=== PATIENT | female | born 1995 | race African-American/Black ===

== ENCOUNTER 2021-09-05 17:38 | Day surgery (SDC) | payer OTHER ==
[2021-09-05] MEDS ORDERED: hydrALAZINE 20 MG/ML VIAL SLOW IVP PRN (19:11)
[2021-09-05] MEDS ORDERED: Lactated Ringer's 1,000 ML IV SCH (19:15)
== END 2021-09-05 21:25 | disposition home or self-care (01) ==
LOC: CSHLD/OP 17:38
PROVIDERS: ATTEND Obstetrics & Gynecology
DX: O47.03 False labor before 37 completed weeks of gestation, third trimester (principal); O34.211 Maternal care for low transverse scar from previous cesarean delivery; O99.283 Endocrine, nutritional and metabolic diseases complicating pregnancy, third trimester; O99.343 Other mental disorders complicating pregnancy, third trimester; N85.8 Other specified noninflammatory disorders of uterus; E03.9 Hypothyroidism, unspecified; F32.A Depression, unspecified; Z3A.36 36 weeks gestation of pregnancy; Z79.899 Other long term (current) drug therapy; Z88.0 Allergy status to penicillin
CPT/HCPCS: 96360; 96361; 99282

== ENCOUNTER 2021-09-09 01:51 | Day surgery (SDC) | payer OTHER ==
[2021-09-09 02:20] VITALS: BMI 34.4
[2021-09-09] MEDS ORDERED: hydrALAZINE 20 MG/ML VIAL SLOW IVP PRN (02:55)
[2021-09-09] MEDS ORDERED: Lactated Ringer's 1,000 ML IV SCH (03:00)
[2021-09-09] MEDS ORDERED: Ondansetron ODT 4 MG TAB SL SCH (03:00)
[2021-09-09 03:59] LABS: SARS-CoV-2 NAA Rapid Test DETECTED (NotDetected)
== END 2021-09-09 04:30 | disposition home or self-care (01) ==
LOC: CSHLD/OP 01:51
PROVIDERS: ATTEND Family Medicine
DX: O98.513 Other viral diseases complicating pregnancy, third trimester (principal); U07.1 COVID-19; O47.03 False labor before 37 completed weeks of gestation, third trimester; O99.283 Endocrine, nutritional and metabolic diseases complicating pregnancy, third trimester; E03.9 Hypothyroidism, unspecified; Z3A.36 36 weeks gestation of pregnancy; Z79.899 Other long term (current) drug therapy; Z88.0 Allergy status to penicillin
CPT/HCPCS: 0240U; 96360; 96361; 99283; Q0162

== ENCOUNTER 2021-09-10 17:33 | Day surgery (SDC) | payer OTHER ==
[2021-09-10] MEDS ORDERED: Acetaminophen/Codeine 30-300mg Tablet PO PRN (19:31)
[2021-09-10] MEDS ORDERED: hydrALAZINE 20 MG/ML VIAL SLOW IVP PRN (19:32)
[2021-09-10 19:40] VITALS: BMI 34.4
[2021-09-10] MEDS ORDERED: Lidocaine Viscous Sol 2% 15 ml UD Cup SSW SCH (21:30)
[2021-09-10 22:21] LABS: Bilirubin Neg (Negative); Blood, Urine 10 (Negative); Clarity Clear (Clear); Glucose, Urine (Dipstick) Normal (Negative); Ketone, Urine 150 mg/dL (Negative); Leukocyte Negative (Negative); Nitrite Negative (Negative); Protein, Urine (Dipstick) 30 mg/dl (Neg-Trace); Specific Gravity, Urine 1.015 (1.002-1.036)
[2021-09-10 22:30] LABS: RBC/HPF 0-3 HPF (0-3); Squamous Epithelial 0-3 HPF (0-3); WBC/HPF 0-3 HPF (0-3)
[2021-09-10 22:31] LABS: Bacteria/HPF 1+ HPF (None Seen); Mucous/LPF 1+ LPF (<2+)
== END 2021-09-10 23:45 | disposition home or self-care (01) ==
LOC: CSHLD/OP 17:33 → CSHERS 17:33 → EDSTATUS 17:46 → CSHLD/OP 23:45
PROVIDERS: ATTEND Family Medicine
DX: O98.513 Other viral diseases complicating pregnancy, third trimester (principal); O36.8130 Decreased fetal movements, third trimester, not applicable or unspecified; O99.283 Endocrine, nutritional and metabolic diseases complicating pregnancy, third trimester; O99.343 Other mental disorders complicating pregnancy, third trimester; O34.219 Maternal care for unspecified type scar from previous cesarean delivery; U07.1 COVID-19; E03.9 Hypothyroidism, unspecified; F32.A Depression, unspecified; N85.8 Other specified noninflammatory disorders of uterus; Z3A.36 36 weeks gestation of pregnancy; Z79.899 Other long term (current) drug therapy; Z88.0 Allergy status to penicillin
CPT/HCPCS: 36415; 81001; 87086; 99283

== ENCOUNTER 2021-09-25 11:17 | Inpatient (IN) | payer MEDICAID, OTHER ==
[2021-09-25] MEDS ORDERED: Ondansetron PF 4 MG/2 ML Vial IVP PRN ×3 (11:24→17:22)
[2021-09-25] MEDS ORDERED: hydrALAZINE 20 MG/ML VIAL SLOW IVP PRN ×2 (11:24→17:22)
[2021-09-25] MEDS ORDERED: Bicitra 30 ML UDCUP PO PRN (11:24)
[2021-09-25] MEDS ORDERED: Clindamycin/D5W 900 MG in Premix Bag 1 BAG IVPB SCH (11:24)
[2021-09-25] MEDS ORDERED: Lactated Ringer's 1,000 ML IV SCH (11:24)
[2021-09-25] MEDS ORDERED: Promethazine HCl 25 MG/ML VIAL IM PRN ×3 (11:24→17:22)
[2021-09-25] MEDS ORDERED: Famotidine/PF 20 mg/2ml Vial SLOW IVP PRN (11:24)
[2021-09-25] MEDS ORDERED: Phenylephrine 40 MG/NS 250 ML 250 ML ONE (12:19)
[2021-09-25] MEDS ORDERED: Morphine PF 10 MG/10 ML VIAL ONE (12:19)
[2021-09-25] MEDS ORDERED: Oxytocin 10 UNITS/ML VIAL ONE ×2 (12:19→14:15)
[2021-09-25] MEDS ORDERED: PHENYLEPHRINE-NS 100 MCG/ML 10 ML SYRINGE ONE (12:19)
[2021-09-25 12:21] LABS: Hemoglobin 10.7 g/dL (12.0-15.5); Mean Corpuscular HGB CONC 32.2 g/dL (32.0-36.0); Mean Corpuscular Volume 80.6 fl (81.6-98.3); Mean Platelet Volume 10.2 fl (7.4-10.4); Platelet Count 318 10x3/uL (150-450); RBC Distribution Width 17.2 % (11.5-14.5); Red Blood Cell (RBC) Count 4.12 10x6/uL (3.90-5.03); White Blood Cell (WBC) Count 7.1 10x3/uL (3.5-10.5)
[2021-09-25 13:30] LABS: Syphilis Antibody Nonreactive (Nonreactive); Syphilis Antibody Index 0.04 S/CO (<1.00 Non-Reactive)
[2021-09-25 13:32] LABS: Hep B Surf Ag Non-Reactive S/CO (NonReactive)
[2021-09-25] MEDS ORDERED: Glycopyrrolate 0.2 MG/ML 5 ML SYRINGE ONE (13:35)
[2021-09-25] MEDS ORDERED: ePHEDrine Sulfate 50 MG/10 ML VIAL ONE (13:36)
[2021-09-25] MEDS ORDERED: Ketorolac Tromethamine 30 MG/ML VIAL ONE (14:07)
[2021-09-25] MEDS ORDERED: Gentamicin Sulfate 80 MG in Premix Bag 1 BAG IVPB SCH (14:30)
[2021-09-25] MEDS ORDERED: HYDROmorphone 2 MG/ML VIAL SLOW IVP PRN (14:50)
[2021-09-25] MEDS ORDERED: Naloxone HCl 0.4 mg/ml Vial IV PRN (14:50)
[2021-09-25] MEDS ORDERED: Promethazine HCl 25 MG SUPP PR PRN (14:50)
[2021-09-25] MEDS ORDERED: Naloxone HCl 0.4 mg/ml Vial IVP PRN ×2 (14:50)
[2021-09-25] MEDS ORDERED: Ketorolac Tromethamine 30 MG/ML VIAL IVP PRN (14:50)
[2021-09-25] MEDS ORDERED: Fentanyl 100 MCG/2 ML VIAL SLOW IVP PRN (14:50)
[2021-09-25] MEDS ORDERED: Ondansetron HCl/PF 4 MG/2 ML Vial IVP PRN (14:50)
[2021-09-25] MEDS ORDERED: diphenhydrAMINE 50 MG/ML VIAL IVP PRN (14:50)
[2021-09-25] MEDS ORDERED: Meperidine HCl/PF 25 MG/ML VIAL SLOW IVP PRN (14:50)
[2021-09-25] MEDS ORDERED: Hydrocerin (Eucerin) Cream 120 gm Jar TOP PRN (14:50)
[2021-09-25] MEDS ORDERED: Communication Order-Pharmacy FS SCH (15:00)
[2021-09-25] MEDS ORDERED: Ketorolac Tromethamine 30 MG/ML VIAL IVP SCH ×2 (15:00→18:00)
[2021-09-25] MEDS ORDERED: diphenhydrAMINE 25 MG CAP PO PRN (17:22)
[2021-09-25] MEDS ORDERED: Bisacodyl 10 MG SUPP PR PRN (17:22)
[2021-09-25] MEDS ORDERED: Boostrix 0.5 ML (Tdap) VIAL IM ONE (17:22)
[2021-09-25] MEDS: Ketorolac Tromethamine 30 MG/ML VIAL IVP SCH (20:13)
[2021-09-25] MEDS: Docusate Calcium (SURFAK) 240 MG CAP PO SCH (20:43)
[2021-09-25] MEDS: Ferrous Sulfate 325 MG TAB PO SCH (20:43)
[2021-09-26] MEDS ORDERED: HYDROcodone/Acetaminophen 5/325 mg Tablet PO PRN (03:00)
[2021-09-26] MEDS ORDERED: Meperidine HCl/PF 25 MG/ML VIAL IM PRN (03:00)
[2021-09-26] MEDS: Ketorolac Tromethamine 30 MG/ML VIAL IVP SCH ×3 (04:42→16:37)
[2021-09-26 06:07] LABS: Hemoglobin 9.7 g/dL (12.0-15.5); Mean Corpuscular HGB CONC 32.9 g/dL (32.0-36.0); Mean Corpuscular Hemoglobin 26.6 pg (27.0-33.0); Mean Corpuscular Volume 80.8 fl (81.6-98.3); Mean Platelet Volume 10.6 fl (7.4-10.4); Platelet Count 270 10x3/uL (150-450); RBC Distribution Width 17.2 % (11.5-14.5); Red Blood Cell (RBC) Count 3.65 10x6/uL (3.90-5.03); White Blood Cell (WBC) Count 12.9 10x3/uL (3.5-10.5)
[2021-09-26] MEDS: Prenatal Vitamin 1 TAB PO SCH (08:29)
[2021-09-26] MEDS: Docusate Calcium (SURFAK) 240 MG CAP PO SCH ×2 (08:29→22:04)
[2021-09-26] MEDS: Simethicone Chewable 80 MG TAB PO PRN ×2 (08:29→19:50)
[2021-09-26] MEDS: HYDROcodone/Acetaminophen 5/325 mg Tablet PO PRN ×3 (08:30→19:51)
[2021-09-26] MEDS: Ferrous Sulfate 325 MG TAB PO SCH ×2 (08:32→22:04)
[2021-09-26] MEDS: Ibuprofen 800 MG TAB PO SCH (22:03)
[2021-09-27] MEDS: Simethicone Chewable 80 MG TAB PO PRN (03:58)
[2021-09-27] MEDS: Ibuprofen 800 MG TAB PO SCH (05:02)
[2021-09-27 08:02] VITALS: BP 114/70; TEMP 98.6
[2021-09-27] MEDS: Prenatal Vitamin 1 TAB PO SCH (09:49)
[2021-09-27] MEDS: Docusate Calcium (SURFAK) 240 MG CAP PO SCH (09:49)
[2021-09-27] MEDS: Ferrous Sulfate 325 MG TAB PO SCH (09:51)
[2021-09-27] MEDS: HYDROcodone/Acetaminophen 5/325 mg Tablet PO PRN (09:56)
== END 2021-09-27 12:02 | disposition home or self-care (01) | DRG 788 ==
LOC: CSHLD 11:17 → CSHPP 17:12
PROVIDERS: ADMIT Family Medicine; ATTEND Family Medicine
PROC: 10D00Z1 Extraction of Products of Conception, Low, Open Approach (ICD-10-PCS; principal; 2021-09-25)
DX: O34.211 Maternal care for low transverse scar from previous cesarean delivery (principal); O34.13 Maternal care for benign tumor of corpus uteri, third trimester; D25.9 Leiomyoma of uterus, unspecified; Z88.0 Allergy status to penicillin; Z3A.39 39 weeks gestation of pregnancy; Z37.0 Single live birth
CPT/HCPCS: 36415; 51702; 85027; 86780; 86850; 86900; 86901; 87340; J1580; J1885; J2274; J2405; J2590; S0028

== ENCOUNTER 2021-09-29 18:32 | Emergency (ER) | payer OTHER ==
[2021-09-29 19:49] LABS: #Eosinphils 0.2 10x3/uL (0.0-0.5); #Monocytes 0.6 10x3/uL (0.0-1.1); #Neutrophils 6.8 10x3/uL (1.5-8.4); %Basophils 0.2 % (0.0-2.0); %Eosinophils 1.7 % (0.0-6.0); %Lymphocytes 20.4 % (18.0-47.0); %Monocytes 6.6 % (0.0-10.0); %Neutrophils 70.2 % (40.0-75.0); Mean Corpuscular HGB CONC 32.1 g/dL (32.0-36.0); Mean Corpuscular Hemoglobin 26.7 pg (27.0-33.0); Mean Corpuscular Volume 83.1 fl (81.6-98.3); Mean Platelet Volume 10.5 fl (7.4-10.4); Platelet Count 208 10x3/uL (150-450); RBC Distribution Width 17.8 % (11.5-14.5); Red Blood Cell (RBC) Count 3.37 10x6/uL (3.90-5.03); White Blood Cell (WBC) Count 9.6 10x3/uL (3.5-10.5)
[2021-09-29 20:05] LABS: ALT (SGPT) 45 U/L (8-55); AST (SGOT) 42 U/L (5-34); Albumin 2.7 g/dL (3.5-5.0); Alkaline Phosphatase 134 U/L (40-110); Anion Gap 13 mmol/L (10-20); BUN (Urea Nitrogen) 8 mg/dL (7.0-18.7); Bilirubin, Total 0.5 mg/dL (0.2-1.2); Calc. Creatinine Clearance 0 mL/min (70-130); Carbon Dioxide 22 mmol/L (22-29); Chloride 109 mmol/L (98-107); Globulin 3.1 g/dL (2.4-3.5); Glucose 94 mg/dL (70-105); Potassium 3.6 mmol/L (3.5-5.1); Protein, Total 5.8 g/dL (6.0-8.3); Sodium 140 mmol/L (136-145)
[2021-09-29] MEDS ORDERED: Ventolin HFA Inhaler 60 PUFF INHALER ONE (20:17)
== END 2021-09-29 21:35 | disposition home or self-care (01) ==
LOC: CSHERS 18:32
DX: R06.00 Dyspnea, unspecified (principal); K59.00 Constipation, unspecified; E03.9 Hypothyroidism, unspecified
CPT/HCPCS: 36415; 71275; 80053; 83880; 85025; 93005

== ENCOUNTER 2023-02-04 06:15 | Emergency (ER) | payer OTHER ==
[2023-02-04] MEDS ORDERED: Ketorolac Tromethamine 30 MG/ML VIAL ONE (07:25)
[2023-02-04] MEDS ORDERED: Ondansetron PF 4 MG/2 ML Vial ONE (07:26)
[2023-02-04 07:36] LABS: #Eosinphils 0.2 10x3/uL (0.0-0.5); #Monocytes 0.5 10x3/uL (0.0-1.1); #Neutrophils 7.4 10x3/uL (1.5-8.4); %Eosinophils 2.1 % (0.0-6.0); %Lymphocytes 11.2 % (18.0-47.0); %Monocytes 5.9 % (0.0-10.0); %Neutrophils 80.5 % (40.0-75.0); Hemoglobin 12.2 g/dL (12.0-15.5); Mean Corpuscular Hemoglobin 24.3 pg (27.0-33.0); Mean Corpuscular Volume 75.9 fl (81.6-98.3); Mean Platelet Volume 11.3 fl (7.4-10.4); Platelet Count 281 10x3/uL (150-450); RBC Distribution Width 16.2 % (11.5-14.5); Red Blood Cell (RBC) Count 5.02 10x6/uL (3.90-5.03); White Blood Cell (WBC) Count 9.2 10x3/uL (3.5-10.5)
[2023-02-04 07:54] LABS: ALT (SGPT) 16 U/L (8-55); AST (SGOT) 24 U/L (5-34); Albumin 4.2 g/dL (3.5-5.0); Alkaline Phosphatase 81 U/L (40-110); Anion Gap 15 mmol/L (10-20); BUN (Urea Nitrogen) 11 mg/dL (7.0-18.7); Bilirubin, Total 0.6 mg/dL (0.2-1.2); CK (CPK) 300 U/L (29-168); Calc. Creatinine Clearance 0 mL/min (70-130); Calcium 8.9 mg/dL (7.8-10.44); Carbon Dioxide 21 mmol/L (22-29); Chloride 108 mmol/L (98-107); Estimated GFR 93; Globulin 3.2 g/dL (2.4-3.5); Glucose 103 mg/dL (70-105); Lipase 18 U/L (8-78); Protein, Total 7.4 g/dL (6.0-8.3); Sodium 140 mmol/L (136-145)
[2023-02-04 08:07] LABS: BHCG - Serum Negative (NEGATIVE); Pregs Control Background? CLEAR/WHITE (CLR/WHITE); Pregs Control Bar Appear? YES (CONTROL BAR)
== END 2023-02-04 09:43 | disposition home or self-care (01) ==
LOC: CSHERS 06:15
DX: R11.2 Nausea with vomiting, unspecified (principal); E03.9 Hypothyroidism, unspecified; Z79.899 Other long term (current) drug therapy
CPT/HCPCS: 80053; 82550; 83690; 84484; 84703; 85025; 93005; 96361; 96374; 96375; J1885; J2405

== ENCOUNTER 2023-07-31 21:10 | Emergency (ER) | payer OTHER ==
[2023-07-31] MEDS ORDERED: Tetracaine 0.5% PF 4 ML BOT ONE (22:40)
[2023-07-31] MEDS ORDERED: Fluorescein Opthalmic Strip ONE (22:51)
== END 2023-07-31 23:20 | disposition home or self-care (01) ==
LOC: CSHERS 21:10
DX: H57.12 Ocular pain, left eye (principal)
CPT/HCPCS: 99283

== ENCOUNTER 2023-11-10 21:18 | Emergency (ER) | payer OTHER ==
[2023-11-11] MEDS ORDERED: Ibuprofen 200 MG TAB ONE (00:31)
[2023-11-11] MEDS ORDERED: Dexamethasone 4 MG TAB ONE (00:31)
== END 2023-11-11 02:05 | disposition home or self-care (01) ==
LOC: CSHERS 21:18
DX: J02.9 Acute pharyngitis, unspecified (principal); E03.9 Hypothyroidism, unspecified
CPT/HCPCS: 87081; 87430; 99283; J8540